=== PATIENT | male | born 2000 | race African-American/Black ===

== ENCOUNTER 2021-10-18 12:30 | Emergency (ER) | payer OTHER ==
[~2021-10-18] VITALS: Ht 177.8 cm; Wt 78.8 kg
[2021-10-18 14:12] VITALS: O2SAT 98
[2021-10-18 15:49] VITALS: BP 124/68
== END 2021-10-18 15:50 | disposition home or self-care (01) ==
LOC: M ED 12:30
DX: J06.9 Acute upper respiratory infection, unspecified (principal); Z20.822 Contact with and (suspected) exposure to COVID-19
CPT/HCPCS: 99284; U0003